=== PATIENT | male | born 1990 | race Hispanic/Latino ===

== ENCOUNTER 2022-02-08 09:48 | Emergency (ER) | payer OTHER ==
[~2022-02-08] VITALS: Ht 177.8 cm; Wt 101.3 kg
[2022-02-08] MEDS ORDERED: HYDROCODONE/ACETAMINOPHEN 10/325 MG TAB PO SCH (10:36)
[2022-02-08] MEDS ORDERED: ACET1TAB25 PO (10:49)
[2022-02-08 11:07] VITALS: BP 115/65
== END 2022-02-08 11:15 | disposition home or self-care (01) ==
LOC: EDH 09:48
DX: S43.52XA Sprain of left acromioclavicular joint, initial encounter (principal); X58.XXXA Exposure to other specified factors, initial encounter; Y93.89 Activity, other specified; Y92.89 Other specified places as the place of occurrence of the external cause; Y99.8 Other external cause status
CPT/HCPCS: 73030

== ENCOUNTER 2023-09-08 16:00 | Emergency (ER) | payer OTHER, SELFPAY ==
[~2023-09-08] VITALS: Ht 170.2 cm; Wt 99.8 kg
[~2023-09-08 16:00] MED LIST: ACET-2079 PO
[2023-09-08 16:21] VITALS: BP 147/97; PULSE 84; RESP 16; O2SAT 100
[2023-09-08] MEDS ORDERED: CEFAZOLIN SODIUM 1 GM VIAL IM STA (19:20)
[2023-09-08] MEDS ORDERED: LIDOCAINE HCL 1% 20 ML VIAL INJ SCH (19:30)
[2023-09-08] MEDS ORDERED: IBUP-2070 PO (21:13)
[2023-09-08] MEDS ORDERED: CEPH500B PO (21:13)
== END 2023-09-08 21:40 | disposition home or self-care (01) ==
LOC: EDH 16:00
DX: S61.216A Laceration without foreign body of right little finger without damage to nail, initial encounter (principal); Z79.899 Other long term (current) drug therapy; W01.0XXA Fall on same level from slipping, tripping and stumbling without subsequent striking against object, initial encounter; Y93.89 Activity, other specified; Y92.89 Other specified places as the place of occurrence of the external cause; Y99.8 Other external cause status
CPT/HCPCS: 99283; 73140; 12001; 96372; J0690